=== PATIENT | female | born 1955 | race American Indian/Alaskan Native ===

== ENCOUNTER 2016-09-16 09:25 | Outpatient (CLI) | payer OTHER ==
--- NOTE | 2016-09-17 11:04 | Mammography Report ---
BILATERAL DIGITAL SCREENING MAMMOGRAM with CAD: 09/16/16 09:25:00 CLINICAL: Routine screening. COMPARISON:None available and it is not clear as to whether there may be an available comparison mammogram. FINDINGS: There are bilateral scattered fibroglandular densities. An oval right partially circumscribed focal asymmetry requires additional imaging.No architectural distortion or suspicious calcifications.The left breast is negative. IMPRESSION: Right focal asymmetry requiring further workup. BI-RADS CATEGORY: 0 -- Additional Imaging Evaluation Required RECOMMENDATION: Recall for right mediolateral , spot compression CC and MLO views and right breast ultrasound. ACR BI-RADS MAMMOGRAPHIC CODES: 0 = Needs additional imaging evaluation; 1 = Negative; 2 = Benign; 3 = Probably benign; 4 = Suspicious; 5 = Malignant; 6 = Known biopsy-proven malignancy COMMENT: 1. Dense breast tissue, i.e., adenosis, fibrocystic changes, etc., may obscure an underlying neoplasm. 2. Approximately 10% of cancers are not detected with mammography. 3. A negative mammography report should not delay biopsy if a clinically suspicious mass is present. COMMENT: Patient follow-up letters are generated via our [employer] application.
== END 2016-09-16 09:26 | disposition home or self-care (01) ==
LOC: SPVWC 09:25
PROVIDERS: ATTEND Family Medicine
DX: Z12.31 Encounter for screening mammogram for malignant neoplasm of breast (principal)
CPT/HCPCS: 77067; G0202

== ENCOUNTER 2016-10-13 10:25 | Outpatient (CLI) | payer OTHER ==
--- NOTE | 2016-10-13 12:43 | XRay Report ---
CHEST 2 VIEWS INDICATION: Asthma. COMPARISON: 03/23/2012 FINDINGS: Frontal and lateral chest radiographs again demonstrate normal cardiomediastinal silhouette without pleural effusions or CHF. Mild biapical scarring/pleural thickening and subtle right upper lobe scarring may again be noted. New mild left lung base scarring or atelectasis. Stable bones. CONCLUSION: New mild left basilar atelectasis or scarring since August 2011 with few other stable findings, as described. Please correlate. Thank you for the opportunity to participate in this patient's care.
--- NOTE | 2016-10-13 12:44 | Mammography Report ---
RIGHT DIGITAL DIAGNOSTIC MAMMOGRAM and RIGHT BREAST ULTRASOUND: 10/13/16 10:25:00 CLINICAL: Recalled for asymmetry. COMPARISON:09/16/16 screening FINDINGS: ML and spot compression MLO and CC views were performed. An oval partially circumscribed density persists on all views. Ultrasound of the right breast was performed and demonstrated an isoechoic oval mass with a relatively smooth contour at 1 o'clock 5 cm from the nipple. It measures 1.2 x 0.4 x 1.0 cm and correlates with the mammographic density. It has a cystic center suggesting that it is a cyst with a relatively thick (2 mm) wall. No other mass or cyst is identified. IMPRESSION: A probably benign 1.2 cm thickwalled cyst or solid mass with a central cystic component. BI-RADS CATEGORY: 3 - - Probably Benign RECOMMENDATION: Short-term followup with a repeat mammogram and right breast ultrasound in three months. ACR BI-RADS MAMMOGRAPHIC CODES: 0 = Needs additional imaging evaluation; 1 = Negative; 2 = Benign; 3 = Probably benign; 4 = Suspicious; 5 = Malignant; 6 = Known biopsy-proven malignancy COMMENT: 1. Dense breast tissue, i.e., adenosis, fibrocystic changes, etc., may obscure an underlying neoplasm. 2. Approximately 10% of cancers are not detected with mammography. 3. A negative mammography report should not delay biopsy if a clinically suspicious mass is present. COMMENT: Patient follow-up letters are generated via our [employer] application.
== END 2016-10-13 10:26 | disposition home or self-care (01) ==
LOC: SPVWC 10:25
PROVIDERS: ATTEND Family Medicine
DX: J45.909 Unspecified asthma, uncomplicated (principal); J98.11 Atelectasis
CPT/HCPCS: 71020; 76642; G0206